=== PATIENT | male | born 1965 | race Two or more races ===

== ENCOUNTER 2021-06-29 12:15 | Inpatient (IN) | payer OTHER ==
[~2021-06-29] VITALS: Ht 175.3 cm; Wt 99.8 kg
[2021-06-29] MEDS ORDERED: ZESTRIL20 MG PO (15:53)
[2021-06-29] MEDS ORDERED: NASAL MIST126 ML (15:53)
== END 2021-07-16 18:27 | disposition home or self-care (01) | DRG 329 ==
LOC: SURG 07-01 05:50 → O/R 07-01 05:50 → SURH 07-01 12:15 → SURG 07-01 14:58 → SURH 07-08 13:36 → SURG 07-13 00:31 → MEDJ 07-15 21:03
PROVIDERS: ADMIT Colon & Rectal Surgery; ATTEND Colon & Rectal Surgery
PROC: 07BB4ZZ Excision of Mesenteric Lymphatic, Percutaneous Endoscopic Approach (ICD-10-PCS; 2021-07-01)
PROC: 0WQF4ZZ Repair Abdominal Wall, Percutaneous Endoscopic Approach (ICD-10-PCS; 2021-07-01)
PROC: 0DBU4ZZ Excision of Omentum, Percutaneous Endoscopic Approach (ICD-10-PCS; 2021-07-01)
PROC: 4A1BXSH Monitoring of Gastrointestinal Vascular Perfusion using Indocyanine Green Dye, External Approach (ICD-10-PCS; 2021-07-01)
PROC: 0DTF4ZZ Resection of Right Large Intestine, Percutaneous Endoscopic Approach (ICD-10-PCS; principal; 2021-07-01 12:30)
PROC: BW21YZZ Computerized Tomography (CT Scan) of Abdomen and Pelvis using Other Contrast (ICD-10-PCS; 2021-07-04)
DX: K63.5 Polyp of colon (principal); U07.1 COVID-19; K91.31 Postprocedural partial intestinal obstruction; K57.32 Diverticulitis of large intestine without perforation or abscess without bleeding; R59.0 Localized enlarged lymph nodes; K43.9 Ventral hernia without obstruction or gangrene; Z20.822 Contact with and (suspected) exposure to COVID-19; I10 Essential (primary) hypertension

== ENCOUNTER 2025-02-17 12:40 | Inpatient (IN) | payer OTHER ==
[~2025-02-17] VITALS: Ht 175.3 cm; Wt 91.2 kg
[~2025-02-17 12:40] MED LIST: NASAL MIST126 ML; ZESTRIL20 MG PO
[2025-02-17 16:30] VITALS: BP 158/82; O2SAT 98
[2025-02-17 17:20] VITALS: BP 158/82
[2025-02-17] MEDS ORDERED: METRONIDAZOLE/SODIUM CHLORIDE 500 MG/100 ML PIGGYBACK IV SCH (21:00)
[2025-02-17] MEDS ORDERED: 0.9 % SODIUM CHLORIDE 1,000 ML IV SCH (21:45)
[2025-02-18] MEDS ORDERED: KETOROLAC TROMETHAMINE 30 MG VIAL IV PRN
[2025-02-18 01:10] VITALS: BP 160/93; O2SAT 97
[2025-02-18] MEDS ORDERED: CIPROFLOXACIN IN 5 % DEXTROSE 400 MG/200 ML PIGGYBAG IV SCH (05:00)
[2025-02-18 08:00] VITALS: BP 124/77; O2SAT 97
[2025-02-18] MEDS ORDERED: PANTOPRAZOLE SODIUM 40 MG/VIAL VIAL IV SCH (09:00)
[2025-02-18 14:00] VITALS: BP 142/80; O2SAT 93
[2025-02-18 20:56] LABS: BASO % 0.6 % (0.1-1.2); EOS # 0.51 (0.04-0.54); EOS % 7.4 % (0.7-7.0); LYMPH # 0.84 (1.18-3.74); LYMPH % 12.2 % (19.3-53.1); MEAN PLATELET VOLUME 12.20 fl (9.4-12.4); MONO # 1.12 (0.24-0.82); MONO % 16.3 % (4.7-12.5); NEUT # 4.37 (1.56-6.13); NEUT % 63.4 % (34.0-71.1); RED CELL DISTRIBUTION WIDTH 12.8 % (11.6-14.4)
[2025-02-18 21:29] LABS: BUN CREA RATIO 10.0 (7.0-25.0); CREATININE SERUM 0.81 mg/dL (0.70-1.30); GFR 97.2; GLUCOSE FASTING 100.0 mg/dL (65-100); OSMOLALITY SERUM 282.0 MOSM/KG (275-295)
[2025-02-18 21:33] LABS: INR 1.11
[2025-02-19 00:19] VITALS: BP 162/80; O2SAT 95
[2025-02-19 08:00] VITALS: BP 137/82; O2SAT 96
[2025-02-19] MEDS ORDERED: IOVERSOL 320 MG/ML - 50 ML VIAL IV ONE (15:16)
[2025-02-19] MEDS ORDERED: GLUCAGON 1 MG VIAL ONE (15:17)
[2025-02-19] MEDS ORDERED: SUGAMMADEX SODIUM 200 MG/2 ML VIAL IV ONE (16:46)
[2025-02-20] VITALS: BP 132/78; O2SAT 95
[2025-02-20 08:00] VITALS: BP 141/74; O2SAT 98
== END 2025-02-20 22:42 | disposition home or self-care (01) | DRG 446 ==
LOC: SURH 12:40 → SURG 17:43
PROVIDERS: Internal Medicine; ADMIT Internal Medicine; ATTEND Internal Medicine
PROC: BF10YZZ Fluoroscopy of Bile Ducts using Other Contrast (ICD-10-PCS; 2025-02-19)
PROC: 0F798ZZ Dilation of Common Bile Duct, Via Natural or Artificial Opening Endoscopic (ICD-10-PCS; 2025-02-19)
PROC: XFJB8A7 Inspection of Hepatobiliary Duct using Single-use Duodenoscope, New Technology Group 7 (ICD-10-PCS; 2025-02-19)
PROC: 0FC98ZZ Extirpation of Matter from Common Bile Duct, Via Natural or Artificial Opening Endoscopic (ICD-10-PCS; principal; 2025-02-19 11:00)
DX: K80.51 Calculus of bile duct without cholangitis or cholecystitis with obstruction (principal); I10 Essential (primary) hypertension; G47.33 Obstructive sleep apnea (adult) (pediatric); Z90.49 Acquired absence of other specified parts of digestive tract